=== PATIENT | male | born 1950 | race African-American/Black ===

== ENCOUNTER 2016-12-19 23:45 | Emergency (ER) | payer SELFPAY ==
[~2016-12-19] VITALS: Ht 175.3 cm; Wt 120.0 kg
[2016-12-19 23:47] VITALS: BP 146/73; PULSE 109; RESP 18; TEMP 101; O2SAT 95
== END 2016-12-20 00:40 | disposition left against medical advice (07) ==
LOC: NED 23:45
DX: J11.1 Influenza due to unidentified influenza virus with other respiratory manifestations (principal)
CPT/HCPCS: 99281